=== PATIENT | male | born 1975 | race Two or more races ===

== ENCOUNTER 2018-04-12 12:05 | Inpatient (IN) | payer OTHER ==
[2018-04-12 12:29] VITALS: BMI 21.7
--- NOTE | 2018-04-12 17:54 | HP ---
CIWA Score Nausea/Vomitin-Mild Nausea/No Vomiting Muscle Tremors: 3 Anxiety: 2 Agitation: 2 Paroxysmal Sweats: 2 Orientation: 0-Oriented Tacttile Disturbances: 0-None Auditory Disturbances: 0-None Visual Disturbances: 0-None Headache: 2-Mild CIWA-Ar Total Score: 12 - Admission Criteria OASAS Guidelines: Admission for Medically Managed Detox: Requires at least one of the followin. CIWA greater than 12 2. Seizures within the past 24 hours 3. Delirium tremens within the past 24 hours 4. Hallucinations within the past 24 hours 5. Acute intervention needed for co occurring medical disorder 6. Acute intervention needed for co occurring psychiatric disorder 7. Severe withdrawal that cannot be handled at a lower level of care (continued vomiting, continued diarrhea, abnormal vital signs) requiring intravenous medication and/or fluids 8. Patient presents the following: CIWA greater than 12 Admission Criteria Met: Admission criteria met Admission ROS [facility] Chief Complaint: here for alcohol detox 53 yo with no medical problems lives in a fpc in [facility], says he was asked to come to detox by fpc staff. Alcohol last use yesterday- drinks 1 pint/day, no h/o DT's or seizures. Started drinking at age 7. has been to other detox facilities does not use other drugs Utox neg, SALOME- neg Used to be special education preschool teacher, storekeeper helper here. [place] socks in the street Allergies/Adverse Reactions: Allergies Allergy/AdvReac Type Severity Reaction Status Date / Time No Known Allergies Allergy Verified 04/12/18 17:55 Exam Limitations: No Limitations - Ebola screening Have you traveled outside of the country in the last 21 days: No Have you had contact with anyone from an Ebola affected area: No Have you been sick,other than usual withdrawal symptoms: No Do you have a fever: No - Review of Systems Constitutional: No Symptoms Reported EENT: reports: No Symptoms Reported Respiratory: reports: No Symptoms reported Cardiac: reports: No Symptoms Reported GI: reports: No Symptoms Reported : reports: No Symptoms Reported Musculoskeletal: reports: No Symptoms Reported Integumentary: reports: No Symptoms Reported Neuro: reports: No Symptoms reported Endocrine: reports: No Symptoms Reported Hematology: reports: No Symptoms Reported Psychiatric: reports: No Sypmtoms Reported Other Systems: Reviewed and Negative Patient History - Patient Medical History Other Medical History: no medical hx - Patient Surgical History Past Surgical History: No Other Surgical History: dislocated R middle finger- given splint, pt did not f/ u for surgery - PPD History Documented Results: Negative w/o proof - Smoking Cessation Smoking history: Current every day smoker Have you smoked in the past 12 months: Yes Aproximately how many cigarettes per day: 5 Hx Chewing Tobacco Use: No Initiated information on smoking cessation: Yes 'Breaking Loose' booklet given: 04/12/18 - Substance & Tx. History Hx Alcohol Use: Yes Hx Substance Use: No Substance Use Type: Alcohol - Substances Abused Alcohol Frequency: Daily Amount used: 1 pint Age of first use: 7 Date of Last Use: 04/11/18 Family Disease History - Family Disease History Family History: Denies Admission Physical Exam [facility] - Vital Signs Vital Signs: Vital Signs - 24 hr 04/12/18 12:28 Temperature 99.2 F Pulse Rate 102 H Respiratory 16 Rate Blood Pressure 146/84 - Physical General Appearance: Yes: Within Normal Limits HEENTM: Yes: Within Normal Limits Respiratory: Yes: Within Normal Limits Neck: Yes: Within Normal Limits Breast: Yes: Within Normal Limits Abdominal: Yes: Within Normal Limits Genitourinary: Yes: Within Normal Limits Back: Yes: Within Normal Limits Musculoskeletal: Yes: Within Normal Limits Extremities: Yes: Within Normal Limits Neurological: Yes: Within Normal Limits Lymphatic: Yes: Within Normal Limits - Diagnostic (1) Alcohol use disorder Current Visit: Yes Status: Acute (2) Tobacco abuse disorder Current Visit: Yes Status: Acute Cleared for Admission [facility] - Detox or Rehab [facility] Level of Care: Medically Managed Detox Regimen/Protocol: Librium S Breath Alcohol Content Breath Alcohol Content: 0 Urine Drug Screen - Results Drug Screen Negative: Yes
[2018-04-12] MEDS ORDERED: MENTHOL/PHENOL 1 EACH UD MM PRN (18:04)
[2018-04-12] MEDS ORDERED: chlordiazePOXIDE HCL 25 MG CAPSULE PO PRN (18:04)
[2018-04-12] MEDS ORDERED: ACETAMINOPHEN 325 MG TABLET (FP) PO PRN (18:04)
[2018-04-12] MEDS ORDERED: MAGNESIUM CITRATE 300 ML BOTTLE PO PRN (18:04)
[2018-04-12] MEDS ORDERED: MAGNESIUM HYDROX 2400MG/30ML ORAL SUSPENSION 30 ML CUP PO PRN (18:04)
[2018-04-12] MEDS ORDERED: guaiFENesin/D-METHORPHAN HB 10 ML UNIT-DOSE CUPS PO PRN (18:04)
[2018-04-12] MEDS ORDERED: IBUPROFEN 400 MG TABLET (FP) PO PRN (18:04)
[2018-04-12] MEDS ORDERED: MAG HYDROX/AL HYDROX/SIMETH 30 ML UNIT-DOSE CUP PO PRN (18:04)
[2018-04-12] MEDS ORDERED: P-EPHED 60MG/TRIPROLIDI 2.5MG TABLET PO PRN (18:04)
[2018-04-12] MEDS ORDERED: LOPERAMIDE HCL 2 MG CAPSULE PO PRN (18:04)
[2018-04-12] MEDS ORDERED: chlordiazePOXIDE HCL 25 MG CAPSULE PO ONE (18:30)
[2018-04-12] MEDS ORDERED: MELATONIN 5 MG TABLETS PO PRN (22:00)
[2018-04-12] MEDS: chlordiazePOXIDE HCL 25 MG CAPSULE PO SCH (22:22)
[2018-04-12] MEDS: THIAMINE HCL 100 MG TABLET (FP) PO SCH (22:22)
[2018-04-13] MEDS: chlordiazePOXIDE HCL 25 MG CAPSULE PO SCH ×4 (05:09→22:33)
[2018-04-13] MEDS: PRENATAL VITAMINS W/ FOLIC ACID TABLET (FP) PO SCH (10:11)
[2018-04-13 11:31] LABS: ALBUMIN 3.6 g/dl (3.4-5.0); ALK PHOS 64 U/L (45-117); ANION GAP 7 MMOL/L (8-16); BILIRUBIN,TOTAL 0.4 mg/dL (0.2-1); BLOOD UREA NITROGEN 13 mg/dL (7-18); CALCIUM 8.6 mg/dL (8.5-10.1); CHLORIDE 98 mmol/L (98-107); CO2 30 mmol/L (21-32); CREATININE 0.6 mg/dL (0.55-1.3); GLUCOSE,RANDOM 90 mg/dL (74-106); POTASSIUM 4.1 mmol/L (3.5-5.1); SGOT/AST 51 U/L (15-37); SGPT/ALT 34 U/L (13-61); SODIUM 135 mmol/L (136-145); TOT PROT 7.1 g/dl (6.4-8.2)
[2018-04-13 11:49] LABS: HEMATOCRIT 37.1 % (35.4-49); HEMOGLOBIN 12.3 GM/dL (11.7-16.9); MCH 32.4 pg (25.7-33.7); MCHC 33.2 g/dl (32.0-35.9); MEAN CELL VOLUME 97.6 fl (80-96); MEAN PLT VOLUME 8.5 fl (7.5-11.1); PLATELET COUNT 132 K/MM3 (134-434); RDW 14.1 % (11.9-15.9); WHITE BLOOD COUNT 3.7 K/mm3 (4.0-10.0)
--- NOTE | 2018-04-13 15:32 | PN ---
S CIWA - CIWA Score Nausea/Vomitin-No Nausea/No Vomiting Muscle Tremors: 2 Anxiety: 0-No Anxiety, at Ease Agitation: 0-Normal Activity Paroxysmal Sweats: 3 Orientation: 0-Oriented Tacttile Disturbances: 2-Mild Itch/Numbness/Burn Auditory Disturbances: 0-None Visual Disturbances: 3-Moderate Sensitivity Headache: 0-None Present CIWA-Ar Total Score: 10 BHS Progress Note (SOAP) Subjective: Body Aches, sweating, Tremors. Objective: PATIENT A & O X 3, OBSERVED AMBULATING ON UNIT. IN NO ACUTE DISTRESS. 04/13/18 15:30 Vital Signs Temperature 97.5 F L 04/13/18 13:02 Pulse Rate 87 04/13/18 13:30 Respiratory Rate 16 04/13/18 13:30 Blood Pressure 126/95 04/13/18 13:02 O2 Sat by Pulse Oximetry (%) Laboratory Tests 04/13/18 04/13/18 04/13/18 07:00 07:00 07:00 WBC 3.7 L RBC 3.80 L Hgb 12.3 Hct 37.1 MCV 97.6 H MCH 32.4 MCHC 33.2 RDW 14.1 Plt Count 132 L MPV 8.5 Sodium 135 L Potassium 4.1 Chloride 98 Carbon Dioxide 30 Anion Gap 7 L BUN 13 Creatinine 0.6 Creat Clearance w eGFR > 60 Random Glucose 90 Calcium 8.6 Total Bilirubin 0.4 AST 51 H ALT 34 Alkaline Phosphatase 64 Total Protein 7.1 Albumin 3.6 HIV 1&2 Antibody Screen Negative HIV P24 Antigen Negative LABS NOTED. RPR RESULT PENDING. 04/13/18 15:31 Assessment: 04/13/18 15:30 WITHDRAWAL SYMPTOMS. LEUKOPENIA. THROMBOCYTOPENIA. ELEVATED BLOOD PRESSURE. 04/13/18 15:31 Plan: CONTINUE DETOX. INCREASE DAILY PO FLUID INTAKE. CONTINUE TO MONITOR BP.
[2018-04-13] MEDS: THIAMINE HCL 100 MG TABLET (FP) PO SCH (22:33)
[2018-04-14] MEDS: chlordiazePOXIDE HCL 25 MG CAPSULE PO SCH ×3 (05:08→17:25)
[2018-04-14 09:29] LABS: RPR REACTIVE 1:4 (NONREACTIVE)
[2018-04-14] MEDS: PRENATAL VITAMINS W/ FOLIC ACID TABLET (FP) PO SCH (10:32)
--- NOTE | 2018-04-14 10:40 | PN ---
[facility] CIWA - CIWA Score Nausea/Vomitin-No Nausea/No Vomiting Muscle Tremors: 2 Anxiety: 1-Mildly Anxious Agitation: 1-Slight > Activity Paroxysmal Sweats: 1-Minimal Palms Moist Orientation: 1-Uncertain about Date Tacttile Disturbances: 0-None Auditory Disturbances: 0-None Visual Disturbances: 0-None Headache: 1-Very Mild CIWA-Ar Total Score: 7 S Progress Note (SOAP) Subjective: tremor sweating restlessness Objective: 04/14/18 10:55 Vital Signs Temperature 97.1 F L 04/14/18 09:10 Pulse Rate 74 04/14/18 09:10 Respiratory Rate 18 04/14/18 09:10 Blood Pressure 126/78 04/14/18 09:10 O2 Sat by Pulse Oximetry (%) Laboratory Last Values WBC 3.7 K/mm3 (4.0-10.0) L 04/13/18 07:00 RBC 3.80 M/mm3 (4.00-5.60) L 04/13/18 07:00 Hgb 12.3 GM/dL (11.7-16.9) 04/13/18 07:00 Hct 37.1 % (35.4-49) 04/13/18 07:00 MCV 97.6 fl (80-96) H 04/13/18 07:00 MCH 32.4 pg (25.7-33.7) 04/13/18 07:00 MCHC 33.2 g/dl (32.0-35.9) 04/13/18 07:00 RDW 14.1 % (11.9-15.9) 04/13/18 07:00 Plt Count 132 K/MM3 (134-434) L 04/13/18 07:00 MPV 8.5 fl (7.5-11.1) 04/13/18 07:00 Sodium 135 mmol/L (136-145) L 04/13/18 07:00 Potassium 4.1 mmol/L (3.5-5.1) 04/13/18 07:00 Chloride 98 mmol/L (98-107) 04/13/18 07:00 Carbon Dioxide 30 mmol/L (21-32) 04/13/18 07:00 Anion Gap 7 MMOL/L (8-16) L 04/13/18 07:00 BUN 13 mg/dL (7-18) 04/13/18 07:00 Creatinine 0.6 mg/dL (0.55-1.3) 04/13/18 07:00 Creat Clearance w eGFR > 60 (>60) 04/13/18 07:00 Random Glucose 90 mg/dL (74-106) 04/13/18 07:00 Calcium 8.6 mg/dL (8.5-10.1) 04/13/18 07:00 Total Bilirubin 0.4 mg/dL (0.2-1) 04/13/18 07:00 AST 51 U/L (15-37) H 04/13/18 07:00 ALT 34 U/L (13-61) 04/13/18 07:00 Alkaline Phosphatase 64 U/L (45-117) 04/13/18 07:00 Total Protein 7.1 g/dl (6.4-8.2) 04/13/18 07:00 Albumin 3.6 g/dl (3.4-5.0) 04/13/18 07:00 RPR Titer Reactive 1:4 (NONREACTIVE) H 04/13/18 07:00 HIV 1&2 Antibody Screen Negative 04/13/18 07:00 HIV P24 Antigen Negative 04/13/18 07:00 lab noted history of syphilis treated wait for mha Assessment: 04/14/18 10:56 withdrawal sx Plan: continue detox
[2018-04-14 11:53] LABS: TREPONEMA ANTIBODY REACTIVE (NONREACTIVE)
[2018-04-14 19:03] LABS: URINE APPEARANCE CLEAR; URINE BILIRUBIN NEGATIVE (<2.0 mg/dL); URINE COLOR YELLOW; URINE GLUCOSE (UA) NEGATIVE (NEGATIVE); URINE KETONE NEGATIVE (NEGATIVE); URINE LEUK ESTERASE NEGATIVE (NEGATIVE); URINE NITRITE NEGATIVE (NEGATIVE); URINE PROTEIN 1+ (NEGATIVE); URINE UROBILINOGEN NEGATIVE mg/dL (0.2-1.0)
[2018-04-14 19:18] LABS: EPI CELLS RARE /HPF (FEW); URINE MUCUS RARE
[2018-04-14] MEDS: THIAMINE HCL 100 MG TABLET (FP) PO SCH (22:18)
[2018-04-14] MEDS: chlordiazePOXIDE 5 MG CAPSULE PO SCH (22:18)
[2018-04-15] MEDS: chlordiazePOXIDE 5 MG CAPSULE PO SCH ×3 (05:52→17:41)
[2018-04-15] MEDS: PRENATAL VITAMINS W/ FOLIC ACID TABLET (FP) PO SCH (10:16)
--- NOTE | 2018-04-15 15:18 | PN ---
BHS Progress Note (SOAP) Subjective: Tremors, Sweating. Objective: PATIENT A & O X 2 (UNCERTAIN ABOUT CURRENT DAY / DATE). PATIENT OBSERVED AMBULATING ON UNIT. IN NO ACUTE DISTRESS. 04/15/18 15:16 Vital Signs Temperature 98.7 F 04/15/18 14:04 Pulse Rate 75 04/15/18 14:04 Respiratory Rate 20 04/15/18 14:04 Blood Pressure 113/65 04/15/18 14:04 O2 Sat by Pulse Oximetry (%) Laboratory Tests 04/13/18 04/13/18 04/13/18 07:00 07:00 07:00 WBC 3.7 L RBC 3.80 L Hgb 12.3 Hct 37.1 MCV 97.6 H MCH 32.4 MCHC 33.2 RDW 14.1 Plt Count 132 L MPV 8.5 Sodium 135 L Potassium 4.1 Chloride 98 Carbon Dioxide 30 Anion Gap 7 L BUN 13 Creatinine 0.6 Creat Clearance w eGFR > 60 Random Glucose 90 Calcium 8.6 Total Bilirubin 0.4 AST 51 H ALT 34 Alkaline Phosphatase 64 Total Protein 7.1 Albumin 3.6 Urine Color Urine Appearance Urine pH Ur Specific [place] Urine Protein Urine Glucose (UA) Urine Ketones Urine Blood Urine Nitrite Urine Bilirubin Urine Urobilinogen Ur Leukocyte Esterase Urine WBC (Auto) Urine RBC (Auto) Ur Epithelial Cells Urine Mucus RPR Titer Reactive 1:4 H T.pallidum Ab (MHA) Reactive HIV 1&2 Antibody Screen HIV P24 Antigen 04/13/18 04/14/18 07:00 12:43 WBC RBC Hgb Hct MCV MCH MCHC RDW Plt Count MPV Sodium Potassium Chloride Carbon Dioxide Anion Gap BUN Creatinine Creat Clearance w eGFR Random Glucose Calcium Total Bilirubin AST ALT Alkaline Phosphatase Total Protein Albumin Urine Color Yellow Urine Appearance Clear Urine pH 8.0 Ur Specific [place] 1.016 Urine Protein 1+ H Urine Glucose (UA) Negative Urine Ketones Negative Urine Blood Negative Urine Nitrite Negative Urine Bilirubin Negative Urine Urobilinogen Negative Ur Leukocyte Esterase Negative Urine WBC (Auto) <1 Urine RBC (Auto) 2 Ur Epithelial Cells Rare Urine Mucus Rare RPR Titer T.pallidum Ab (MHA) HIV 1&2 Antibody Screen Negative HIV P24 Antigen Negative LABS NOTED. Assessment: 04/15/18 15:16 WITHDRAWAL SYMPTOMS. LEUKOPENIA. THROMBOCYTOPENIA. 04/15/18 15:17 Plan: CONTINUE DETOX. PATIENT SCHEDULED FOR DISCHARGE TOMORROW.
[2018-04-15] MEDS: chlordiazePOXIDE HCL 10 MG CAPSULE PO SCH (22:21)
[2018-04-15] MEDS: THIAMINE HCL 100 MG TABLET (FP) PO SCH (22:21)
[2018-04-16] MEDS: chlordiazePOXIDE HCL 10 MG CAPSULE PO SCH (05:34)
[2018-04-16 06:02] VITALS: BP 124/79; PULSE 66; TEMP 96.4
--- NOTE | 2018-04-16 18:35 | DS ---
[facility] Detox Discharge Summary Admission Date: 04/12/18 Discharge Date: 04/16/18 - History Present History: Alcohol Dependence Additional Comments: PATIENT RETURNING TO [facility] ([place], [place]). PATIENT REFERRED TO [facility] ([place], [place]) FOR AFTERCARE. PATIENT WAS DISCHARGED FROM DETOX UNIT IN STABLE MEDICAL CONDITION. Pertinent Past History: Nicotine Dependence. - Physical Exam Results Vital Signs: Vital Signs Temperature 96.4 F L 04/16/18 06:02 Pulse Rate 66 04/16/18 06:02 Respiratory Rate 18 04/16/18 06:02 Blood Pressure 124/79 04/16/18 06:02 O2 Sat by Pulse Oximetry (%) Pertinent Admission Physical Exam Findings: WITHDRAWAL SYMPTOMS. Laboratory Tests 04/13/18 04/13/18 04/13/18 07:00 07:00 07:00 WBC 3.7 L RBC 3.80 L Hgb 12.3 Hct 37.1 MCV 97.6 H MCH 32.4 MCHC 33.2 RDW 14.1 Plt Count 132 L MPV 8.5 Sodium 135 L Potassium 4.1 Chloride 98 Carbon Dioxide 30 Anion Gap 7 L BUN 13 Creatinine 0.6 Creat Clearance w eGFR > 60 Random Glucose 90 Calcium 8.6 Total Bilirubin 0.4 AST 51 H ALT 34 Alkaline Phosphatase 64 Total Protein 7.1 Albumin 3.6 Urine Color Urine Appearance Urine pH Ur Specific [place] Urine Protein Urine Glucose (UA) Urine Ketones Urine Blood Urine Nitrite Urine Bilirubin Urine Urobilinogen Ur Leukocyte Esterase Urine WBC (Auto) Urine RBC (Auto) Ur Epithelial Cells Urine Mucus RPR Titer Reactive 1:4 H T.pallidum Ab (MHA) Reactive HIV 1&2 Antibody Screen HIV P24 Antigen 04/13/18 04/14/18 07:00 12:43 WBC RBC Hgb Hct MCV MCH MCHC RDW Plt Count MPV Sodium Potassium Chloride Carbon Dioxide Anion Gap BUN Creatinine Creat Clearance w eGFR Random Glucose Calcium Total Bilirubin AST ALT Alkaline Phosphatase Total Protein Albumin Urine Color Yellow Urine Appearance Clear Urine pH 8.0 Ur Specific [place] 1.016 Urine Protein 1+ H Urine Glucose (UA) Negative Urine Ketones Negative Urine Blood Negative Urine Nitrite Negative Urine Bilirubin Negative Urine Urobilinogen Negative Ur Leukocyte Esterase Negative Urine WBC (Auto) <1 Urine RBC (Auto) 2 Ur Epithelial Cells Rare Urine Mucus Rare RPR Titer T.pallidum Ab (MHA) HIV 1&2 Antibody Screen Negative HIV P24 Antigen Negative LABS NOTED. - Treatment Hospital Course: Detox Protocol Followed, Detoxed Safely, Responded well, Discharged Condition Good Patient has Accepted a Rehab Referral to: PATIENT REFERRED TO [facility] ([place], [place]) - Medication Discharge Medications: Ambulatory Orders NK [No Known Home Medication] 04/12/18 - Diagnosis (1) Alcohol use disorder Status: Acute (2) Tobacco abuse disorder Status: Acute - AMA Did Patient Leave Against Medical Advice: No
== END 2018-04-16 09:12 | disposition home or self-care (01) | DRG 775 ==
LOC: YASAS 12:05 → Y3N 17:21
PROVIDERS: ADMIT Neuromusculoskeletal Medicine & OMM; ATTEND Neuromusculoskeletal Medicine & OMM
PROC: HZ2ZZZZ Detoxification Services for Substance Abuse Treatment (ICD-10-PCS; principal; 2018-04-12)
DX: F10.230 Alcohol dependence with withdrawal, uncomplicated (principal); F17.213 Nicotine dependence, cigarettes, with withdrawal; D69.6 Thrombocytopenia, unspecified; D72.819 Decreased white blood cell count, unspecified; R03.0 Elevated blood-pressure reading, without diagnosis of hypertension; Z86.19 Personal history of other infectious and parasitic diseases; Z59.0 Homelessness
CPT/HCPCS: 36415; 80053; 81003; 81015; 85027; 86593; 86780; 87389